=== PATIENT | male | born 1985 | race Caucasian/White ===

== ENCOUNTER 2016-06-06 03:00 | Emergency (ER) | payer OTHER ==
[~2016-06-06 03:00] MED LIST: CLIN-78 PO; IBUP-1827 PO
[2016-06-06 03:03] VITALS: BP 120/77; PULSE 74; RESP 16; O2SAT 98
--- NOTE | 2016-06-06 03:13 | ED.REPORT ---
HPI-Dental/Mouth Prob Date of Service Jun 06, 2016 ED Provider: Dr. Mayur Jurado M.D. A healthy 31 year old male presents to the ED with right-sided lower dental pain worsening this evening. The patient denies other symptoms. He has a dentist appointment scheduled in two months. Nursing Notes Stated Complaint: TOOTH PAIN Chief Complaint: Dental Nursing Notes Reviewed: Yes Allergies: Coded Allergies: Penicillins (Verified Allergy, Intermediate, Headache, 06/21/15) Uncoded Allergies: ORAGEL (Allergy, Severe, swelling, 02/12/16) Scheduled Clindamycin (Clindamycin) 300 Mg Capsule 300 MG PO QID Clindamycin (Clindamycin) 300 Mg Capsule 300 MG PO QID Scheduled PRN Ibuprofen (Ibuprofen) 600 Mg Tablet 600 MG PO QID PRN PRN For Pain Ibuprofen (Ibuprofen) 600 Mg Tablet 600 MG PO QID PRN PRN For Pain Tramadol (Tramadol) 50 Mg Tablet 100 MG PO Q6H PRN PRN For Pain General Time Seen by MD: 03:13 Chief Complaint Tooth pain Hx Obtained From: Patient Arrived By: Walk-in Onset Occurred: 1 - 4 hours ago (Worsening) Symptom Duration: Since onset Location: : Tooth lower R molar Quality: Painful Severity: Current: Moderate Severity: Maximum: Moderate Pertinent Negative: Pt denies other symptoms Pertinent Negative: Relieved by nothing Recent Healthcare: No recent doctor visit Past Medical History Past Medical History None reported Past Surgical History None reported Smoking History Current Every Day Smoker Social History Alcohol Use: "Social" Drug Use: THC Other Social History: Poor social support, Local resident Ambulatory Status Independent Review of Systems Constitutional: Denies: Fever Ears / Nose / Throat: Reports: Toothache (Lower right) Respiratory: Denies: Non-productive cough, Shortness of breath GI: Denies: Diarrhea, Vomiting Complete sys rev & neg: except as marked. Physical Exam Initial Vital Signs Vital Signs (First) Date Time Temp Pulse Resp B/P Pulse Ox O2 Delivery O2 Flow Rate FiO2 06/06/16 03:03 37.1 74 16 120/77 98 Room Air Initial VS: Reviewed Head / Eyes: Atraumatic, Normocephalic Respiratory: No respiratory distress Skin: Dry, No cyanosis Neurologic: Alert, Oriented, Nonfocal Psychiatric: Mood/affect normal, Behavior normal, Normal thought content ENT: Airway patent, Mucous membranes moist Dental / Gums: Positive: Decay extensive Teeth #16, #17, and #32 missing. Cavities to buccal surface of tooth #30 Buccal surface of tooth #31 sheared off with black surface Neck: Supple, Full range of motion General/Constitutional: Awake, Alert, No acute distress Re-Eval/Medical Decision Med Decision/Clinical Course 31-year-old with significant and widespread dental disease, presents with pain in the right lower jaw, where a carious tooth is heavy and tired buccal side shoe off. Nearly every other tooth is involved with large scale caries. He is begun with clindamycin, and ibuprofen for pain relief. Brief course of tramadol also provided. Follow-up with dentist [facility]. Source of Hx: Old records Re-Evaluation/Progress : Time of Eval: 03:20 Patient Status: Condition improved Re-Evaluation/Progress Note: Discussed with patient physical exam findings, diagnosis, and plan for discharge. Follow-up and return to the ER instructions given. Patient agrees with plan for care and all questions were addressed. Counseled Regarding: Diagnosis, Need for follow-up, When/why to return to ED Discharge & Departure Shift Change Sign-Out Response to Therapy: Improved Primary Impression: Dental abscess Additional Impressions: Gingivitis Decay, teeth Disposition: Home Discharge Condition All VS Reviewed: Yes Condition: Improved Patient Instructions: Dental Abscess (ED) Additional Instructions: Ibuprofen 600 mg four times daily. Tramadol 1-2 tablets four times daily if needed. Never exceeding tramadol tablets and a given day. Clindamycin three times daily. Follow-up with dentist as soon as possible. Referrals: Elissa Wade MD (PCP) Farhanaiblsely Attestation Portions of this note were transcribed by Meli White. I, Dr. Jurado, personally performed the history, physical exam, and medical decision-making; I reviewed and confirmed the accuracy of the information in the transcribed note. Signed by: Charo Castillo, 06/06/2016, 04:00 copies to: Elissa Wade MD, Christopher W MD Jun 06, 2016 03:13 MELI WHITE Jun 06, 2016 03:21
[2016-06-06] MEDS ORDERED: Dexamethasone 20 mg/2 mL Oral Solution PO ONE (03:20)
[2016-06-06] MEDS ORDERED: Ketorolac 30 mg/mL 2 mL Inj IM ONE (03:20)
[2016-06-06] MEDS ORDERED: TRAM50TA2 PO (03:21)
[2016-06-06] MEDS ORDERED: IBUP-1827 PO (03:21)
[2016-06-06] MEDS ORDERED: CLIN-78 PO (03:21)
[2016-06-06 03:38] VITALS: BP 132/78; PULSE 78; RESP 16; O2SAT 98
== END 2016-06-06 03:42 | disposition home or self-care (01) ==
LOC: SED 03:00
DX: K04.7 Periapical abscess without sinus (principal); K05.10 Chronic gingivitis, plaque induced; K02.9 Dental caries, unspecified; F17.200 Nicotine dependence, unspecified, uncomplicated; Z88.0 Allergy status to penicillin; Z88.8 Allergy status to other drugs, medicaments and biological substances
CPT/HCPCS: 96372; 99283; J1885